=== PATIENT | male | born 1960 | race Caucasian/White ===

== ENCOUNTER → 2016-08-28 | Outpatient (CLI) | payer BC ==
[~2016-08-28] MED LIST: APPLE CIDER VI1 EAC1 PO; B-COMPLEX-VITA1 EACH PO; CATS CLAW PO; CHOLINE PO; CLARITIN,ALAVAR10 MG PO; CO Q-10200 MG PO; DHEA50 M1 PO; FISH OIL 1,4001 EACH PO; GARLIC1000 MG PO; INOSITOL PO; MAGNESIUM TAURATE PO; METFORMIN HCL500 M4 PO; NALTREXONE HCL50 MG PO; PERCOCET 5/31 TABLET PO; POTASSIUM-9999 MG PO; PRINZIDE 20-121 EACH PO; RESVERATROL250 MG PO; TOPROL XL25 MG PO; VITAMIN D35000 UNIT PO; [UNRECOGNIZED DRUG - OTHER]; [UNRECOGNIZED DRUG - OTHER] PO; [UNRECOGNIZED DRUG - OTHER] PO
== END | disposition home or self-care (01) ==
LOC: CDC 15:02
DX: R94.31 Abnormal electrocardiogram [ECG] [EKG] (principal); K42.9 Umbilical hernia without obstruction or gangrene
CPT/HCPCS: 93000

== ENCOUNTER 2016-09-04 08:11 | Day surgery (SDC) | payer BC ==
[~2016-09-04] VITALS: Ht 177.8 cm; Wt 102.1 kg
[~2016-09-04 08:11] MED LIST changes: -PERCOCET 5/31 TABLET PO
[2016-09-04 08:45] VITALS: BP 149/80
[2016-09-04 08:47] LABS: POINT-OF-CARE METER ID UU14174212
[2016-09-04] MEDS ORDERED: PERCOCET 5/31 TABLET PO (11:09)
[2016-09-04 11:33] LABS: POINT-OF-CARE METER ID UU13113675
[2016-09-04 12:42] VITALS: BP 138/68
[2016-09-04 13:22] VITALS: BP 127/74
== END 2016-09-04 15:28 | disposition home or self-care (01) ==
LOC: SDC 08:11 → 2SOUTH 15:57 → EDSTATUS 15:58 → SDC 15:58
PROVIDERS: Surgery
DX: K43.2 Incisional hernia without obstruction or gangrene (principal); T83.718A Erosion of other implanted mesh to organ or tissue, initial encounter; T81.89XA Other complications of procedures, not elsewhere classified, initial encounter; Y83.8 Other surgical procedures as the cause of abnormal reaction of the patient, or of later complication, without mention of misadventure at the time of the procedure; I10 Essential (primary) hypertension; E78.5 Hyperlipidemia, unspecified; I45.0 Right fascicular block; E11.9 Type 2 diabetes mellitus without complications; Z68.36 Body mass index [BMI] 36.0-36.9, adult; Z79.84 Long term (current) use of oral hypoglycemic drugs; Z83.3 Family history of diabetes mellitus; Z82.49 Family history of ischemic heart disease and other diseases of the circulatory system; Z82.5 Family history of asthma and other chronic lower respiratory diseases; Z80.8 Family history of malignant neoplasm of other organs or systems; Z88.0 Allergy status to penicillin
CPT/HCPCS: 82948; 88305; C1781; J0330; J0690; J1170; J2250; J2405; J3010

== ENCOUNTER 2017-06-01 08:04 | Outpatient (CLI) | payer BC ==
[~2017-06-01 08:04] MED LIST changes: +BENADRYL50 MG PO; +PERCOCET 5/31 TABLET PO
== END 2017-06-02 11:59 | disposition home or self-care (01) ==
LOC: NUC 08:04
DX: E04.1 Nontoxic single thyroid nodule (principal)
CPT/HCPCS: 78014; 78999; A9516